=== PATIENT | male | born 1945 | race Caucasian/White ===

== ENCOUNTER → 2017-01-03 | Day surgery (SDC) | payer MEDICARE ==
[~2017-01-03] MED LIST: ASPI81CH3; BUPIVACAINE/EPINEPHRINE 0.25% PF 10 ML VIAL ONE; CALC-179 PO; GABA300C3 PO; HEPARIN SODIUM - IV 10,000 UNITS/10 ML VIAL ONE; LACTATED RINGER'S 1000 ML INJ 1,000 ML ONE; METO25CR PO; MIDAZOLAM HCL 2 MG/2 ML VIAL ONE; PROPOFOL 500 MG/50 ML BTL IV ONE; SODIUM CHLORIDE 0.9% 20 ML VIAL ONE; SODIUM CHLORIDE 0.9% INJ 10 ML ONE; TAB-TAB PO; VALT1TAB26 PO; XALA0.00 EACH EYE; ceFAZolin 2 GM PREMIX 50 ML ONE
--- NOTE | 2017-01-03 15:46 | TN ---
cc: CYNTHIA KURTZ DATE OF SURGERY: 01/03/2017 PREOPERATIVE DIAGNOSIS Stage IV colon cancer. POSTOPERATIVE DIAGNOSIS: Stage IV colon cancer. PROCEDURE: 1. Zgnqag-X-Gyaf placement left subclavian vein. 2. Intraoperative interpretation of fluoroscopic images by MD ATTENDING SURGEON: Dr. Kurtz. DIRECTOR OF REHABILITATIVE SERVICES: Staff. ANESTHESIA: TIVA, local anesthetic. BLOOD LOSS: 10 cc COMPLICATIONS None FINDINGS The tip of the catheter in the atriocaval junction aspirating blood and flushing without difficulty. INDICATIONS FOR PROCEDURE The patient is a 71-year-old male who recently was diagnosed with stage IV colon cancer status post sigmoid resection and liver wedge resection. The patient does require Wlzuuq-O-Iyzf placement for adjuvant chemotherapy. The risks, benefits, and alternatives to Zciycb-K-Wwls placement was discussed with the patient in detail prior to the procedure. The patient agreed to undergo the procedure. DESCRIPTION OF PROCEDURE: After informed was obtained the patient was taken to the operating room placed in supine position. The patient placed under sedation. The patient's bilateral chest was shaved, prepped and draped in sterile fashion. Time-out was performed. Local anesthetic was instilled at the planned port site, the pocket site as well as the stick site. Left subclavian vein was accessed on the first attempt with the 18 gauge spinal needle without difficulty. Wire was passed and this was confirmed to be in the venous system and down into the superior vena cava. We then widened the stick site with the 15 blade scalpel to approximately 3 cm horizontal skin incision. We used Bovie electrocautery to dissect down to the chest wall and elevate the skin and fat off of the pectoralis fascia. We then were able to dilate the stick site over the wire and used the breakaway catheter introducer assembly to enter the catheter into the venous system without difficulty using a Seldinger technique. The wire was discarded and the catheter was confirmed to be in good position at the tip of the atriocaval junction on fluoroscopy. We cut the catheter in approximately 23 cm and assembled the port device per the oil and gas exploration technician's recommendations. We placed it in the pocket without difficulty and this lay flat without any kinking. We then closed the pocket with 3-0 Vicryl, 4-0 Monocryl and dermabond. The port was accessed and aspirated blood well, and was flushed with heparinized saline. Dermabond was applied to the skin incision and the patient was discontinued from sedation, taken to the PACU in stable condition. The patient tolerated the procedure well with no apparent complications. All counts were correct. I was present and scrubbed for the entire procedure. MD JACOB Phillips/CARLOS /3:04 PM /3:31 PM
== END | disposition home or self-care (01) ==
LOC: ESDC 09:47
PROVIDERS: ATTEND Surgery
DX: Z45.2 Encounter for adjustment and management of vascular access device (principal); C18.9 Malignant neoplasm of colon, unspecified
CPT/HCPCS: 00532; 36561; 77001; C1788; J0690; J1644; J2250; J3010; J7120